=== PATIENT | female | born 1955 | race Caucasian/White ===

== ENCOUNTER 2018-02-07 08:56 | Day surgery (SDC) | payer OTHER ==
[~2018-02-07] VITALS: Ht 160 cm; Wt 77.6 kg
[~2018-02-07 08:56] MED LIST: ACET325 PO; AMLO5 PO; ASCO500 PO; ASPI81CH PO; CALCIUM MAG ZINC PO; CENTRUM SILVER1 EAC2 PO; CHOL10002 PO; FISH OIL 1,2001 EAC3 PO; FOLI1 PO; Ferrous Sulfat325 M2 PO; LISI5 PO; MULVITMIND PO; Melatonin3 M1 PO; NAPROXEN PO; OMEP40CA12 PO; OXYACE5T PO; RXERYTOPTH OP; THIA100 PO; [UNRECOGNIZED DRUG - OTHER] PO
[2018-02-07] MEDS ORDERED: LOSARTAN-HCTZ1 EACH PO (09:55)
[2018-02-07] MEDS ORDERED: ALBU90OI INH (09:56)
[2018-02-07] MEDS ORDERED: ENOX40I SC (13:03)
[2018-02-07] MEDS ORDERED: PROM25 PO (13:03)
[2018-02-07] MEDS ORDERED: ROXICODONE5 MG PO (13:03)
[2018-02-08 05:04] LABS: BASOPHILS ABSOLUTE AUTO 0.03 K/mm3 (0.00-0.23); BASOPHILS PERCENT AUTO 0 % (0-2); EOSINOPHILS ABSOLUTE AUTO 0.56 K/mm3 (0.00-0.68); EOSINOPHILS PERCENT AUTO 6 % (0-6); Hemoglobin 12.3 g/dL (11.5-16.0); IMMATURE GRAN ABSOLUTE AUTO 0.03 K/mm3 (0.00-0.10); IMMATURE GRAN PERCENT AUTO 0 % (0-1); LYMPHOCYTES ABSOLUTE AUTO 0.89 K/mm3 (0.84-5.20); LYMPHOCYTES PERCENT AUTO 9 % (21-46); MONOCYTES ABSOLUTE AUTO 0.92 K/mm3 (0.16-1.47); MONOCYTES PERCENT AUTO 9 % (4-13); Mean Corpuscular HGB 30.6 pg (26.0-34.0); Mean Corpuscular HGB Conc 32.4 g/dL (31.5-36.5); Mean Corpuscular Volume 95 fL (80-100); Mean Platelet Volume 11.1 fL (9.1-12.4); NEUTROPHILS ABSOLUTE AUTO 7.41 K/mm3 (1.96-9.15); NEUTROPHILS PERCENT AUTO 75 % (41-73); Platelet Count 200 K/mm3 (150-400); RDW Coefficient Variation 12.8 % (11.7-14.2); RDW Standard Deviation 44.4 fL (35.1-46.3); Red Blood Cell Count 4.02 M/mm3 (3.80-5.20); White Blood Cell Count 9.84 K/mm3 (4.00-11.30)
[2018-02-08 05:21] LABS: Anion Gap 5 mmol/L (6-16); Blood Urea Nitrogen 8 mg/dL (8-24); Bun/Creatinine Ratio 11.8 (12.0-20.0); CO2, Blood 30 mmol/L (21-32); Calcium, Blood 8.7 mg/dL (8.5-10.1); Chloride, Blood 105 mmol/L (98-108); Creatinine, Blood 0.68 mg/dL (0.40-1.00); Glomerular Filtration Rate >60 (60-); Glucose, Blood 109 mg/dL (70-99); Magnesium, Blood 2.1 mg/dL (1.6-2.4); Potassium, Blood 3.4 mmol/L (3.5-5.5); Sodium, Blood 140 mmol/L (136-145)
[2018-02-08] MEDS ORDERED: Percocet 5-3251 EACH PO (09:48)
== END 2018-02-08 12:01 | disposition home or self-care (01) ==
LOC: SURS 08:56 → PRE IP 08:56 → ORSCMMR 08:56 → SURS 09:48 → EDSTATUS 12:30 → PRE IP 12:30 → ORSCMMR 02-08 12:01 → SURS 02-08 12:01
PROVIDERS: Orthopaedic Surgery
PROC: 0SRC0J9 Replacement of Right Knee Joint with Synthetic Substitute, Cemented, Open Approach (ICD-10-PCS; principal; 2018-02-07 12:30)
DX: M17.11 Unilateral primary osteoarthritis, right knee (principal); I10 Essential (primary) hypertension; Z79.82 Long term (current) use of aspirin; Z79.899 Other long term (current) drug therapy
CPT/HCPCS: 36415; 73560-RT; 80048; 83735; 85025; 86850; 86900; 86901; 88300; 97110; 97116; 97161; C1713; C1776; G8978; G8979; J0171; J0690; J0735; J1650; J1885; J2250; J2405; J2795; J3010; J3370; J7120

== ENCOUNTER 2019-09-18 13:36 | Emergency (ER) | payer OTHER ==
[~2019-09-18] VITALS: Ht 160 cm; Wt 80.7 kg
[~2019-09-18 13:36] MED LIST changes: +ALBU90OI INH; +ENOX40I SC; +LOSARTAN-HCTZ1 EACH PO; +PROM25 PO; +Percocet 5-3251 EACH PO; +ROXICODONE5 MG PO
[2019-09-18 14:29] LABS: Source, Urine Clean Catch
[2019-09-18 14:32] LABS: Appearance, Urine Clear (Clear); Bilirubin, Urine Neg (Neg); Blood, Urine Neg (Neg); Color, Urine Yellow (P-Yellow); Glucose Qualitative, Urine Neg (Neg); Ketones, Urine Neg (Neg); Leukocyte Esterase, Urine Neg (Neg); Nitrite, Urine Neg (Neg); Protein, Urine Neg (Neg); Urobilinogen, Urine NORM (Normal)
[2019-09-18 14:35] LABS: BASOPHILS ABSOLUTE AUTO 0.03 K/mm3 (0.00-0.23); BASOPHILS PERCENT AUTO 0 % (0-2); EOSINOPHILS PERCENT AUTO 3 % (0-6); Hematocrit 45.2 % (33.0-51.0); IMMATURE GRAN ABSOLUTE AUTO 0.04 K/mm3 (0.00-0.10); IMMATURE GRAN PERCENT AUTO 1 % (0-1); LYMPHOCYTES ABSOLUTE AUTO 1.37 K/mm3 (0.84-5.20); LYMPHOCYTES PERCENT AUTO 18 % (21-46); MONOCYTES ABSOLUTE AUTO 0.74 K/mm3 (0.16-1.47); MONOCYTES PERCENT AUTO 10 % (4-13); Mean Corpuscular HGB 31.6 pg (26.0-34.0); Mean Corpuscular HGB Conc 33.2 g/dL (31.5-36.5); Mean Corpuscular Volume 95 fL (80-100); Mean Platelet Volume 11.2 fL (9.1-12.4); NEUTROPHILS PERCENT AUTO 69 % (41-73); Platelet Count 211 K/mm3 (150-400); RDW Coefficient Variation 12.7 % (11.7-14.2); RDW Standard Deviation 44.3 fL (35.1-46.3); Red Blood Cell Count 4.75 M/mm3 (3.80-5.20); White Blood Cell Count 7.68 K/mm3 (4.00-11.30)
[2019-09-18 14:56] LABS: Alanine Aminotransfer (ALT/SGP 256 U/L (12-78); Albumin, Blood 4.4 g/dL (3.4-5.0); Albumin/Globulin Ratio 1.1 (0.8-1.8); Alk Phos 91 U/L (50-136); Anion Gap 10 mmol/L (6-16); Aspartate Aminotrans (AST/SGOT 206 U/L (12-37); Blood Urea Nitrogen 10 mg/dL (8-24); Bun/Creatinine Ratio 11.9 (12.0-20.0); CO2, Blood 24 mmol/L (21-32); Calcium, Blood 9.6 mg/dL (8.5-10.1); Chloride, Blood 100 mmol/L (98-108); Creatinine, Blood 0.84 mg/dL (0.40-1.00); Globulin, Blood 4.1 g/dL (2.2-4.0); Glomerular Filtration Rate >60 (60-); Glucose, Blood 90 mg/dL (70-99); Potassium, Blood 3.9 mmol/L (3.5-5.5); Sodium, Blood 134 mmol/L (136-145); Total Protein, Blood 8.5 g/dL (6.4-8.2)
== END 2019-09-18 15:33 | disposition left against medical advice (07) ==
LOC: ER 13:36
PROVIDERS: Physician Assistant
DX: R10.9 Unspecified abdominal pain (principal); Z53.20 Procedure and treatment not carried out because of patient's decision for unspecified reasons
CPT/HCPCS: 36415; 80053; 81003; 83690; 85025; 93005; 93010; 99283-25

== ENCOUNTER → 2019-12-12 | Outpatient (CLI) | payer OTHER ==
[2019-12-12 15:24] LABS: BASOPHILS ABSOLUTE AUTO 0.05 K/mm3 (0.00-0.23); BASOPHILS PERCENT AUTO 1 % (0-2); EOSINOPHILS ABSOLUTE AUTO 0.25 K/mm3 (0.00-0.68); EOSINOPHILS PERCENT AUTO 2 % (0-6); Hematocrit 45.3 % (33.0-51.0); Hemoglobin 15.4 g/dL (11.5-16.0); IMMATURE GRAN ABSOLUTE AUTO 0.03 K/mm3 (0.00-0.10); IMMATURE GRAN PERCENT AUTO 0 % (0-1); LYMPHOCYTES ABSOLUTE AUTO 3.28 K/mm3 (0.84-5.20); LYMPHOCYTES PERCENT AUTO 32 % (21-46); MONOCYTES ABSOLUTE AUTO 0.75 K/mm3 (0.16-1.47); MONOCYTES PERCENT AUTO 7 % (4-13); Mean Corpuscular HGB 31.8 pg (26.0-34.0); Mean Corpuscular Volume 93 fL (80-100); Mean Platelet Volume 10.6 fL (9.1-12.4); NEUTROPHILS ABSOLUTE AUTO 6.05 K/mm3 (1.96-9.15); NEUTROPHILS PERCENT AUTO 58 % (41-73); Platelet Count 195 K/mm3 (150-400); RDW Coefficient Variation 13.6 % (11.7-14.2); RDW Standard Deviation 46.5 fL (35.1-46.3); Red Blood Cell Count 4.85 M/mm3 (3.80-5.20); White Blood Cell Count 10.41 K/mm3 (4.00-11.30)
[2019-12-12 15:34] LABS: Alanine Aminotransfer (ALT/SGP 97 U/L (12-78); Albumin, Blood 4.4 g/dL (3.4-5.0); Albumin/Globulin Ratio 1.1 (0.8-1.8); Alk Phos 87 U/L (40-126); Anion Gap 16 mmol/L (6-16); Aspartate Aminotrans (AST/SGOT 101 U/L (12-37); Bilirubin, Total 0.5 mg/dL (0.1-1.0); Blood Urea Nitrogen 12 mg/dL (8-24); Bun/Creatinine Ratio 16.9 (12.0-20.0); CO2, Blood 25 mmol/L (21-32); Calcium, Blood 9.3 mg/dL (8.5-10.1); Chloride, Blood 103 mmol/L (98-108); Creatinine, Blood 0.71 mg/dL (0.40-1.00); Globulin, Blood 4.1 g/dL (2.2-4.0); Glomerular Filtration Rate >60 (60-); Glucose, Blood 92 mg/dL (70-99); Potassium, Blood 3.5 mmol/L (3.5-5.5); Sodium, Blood 144 mmol/L (136-145); Total Protein, Blood 8.5 g/dL (6.4-8.2)
== END | disposition home or self-care (01) ==
LOC: LAB EV 15:19 → LAB SHORT 15:19
PROVIDERS: Family Medicine
DX: I10 Essential (primary) hypertension (principal)
CPT/HCPCS: 80053; 85025

== ENCOUNTER 2020-03-17 18:00 | Emergency (ER) | payer OTHER ==
[~2020-03-17] VITALS: Ht 160 cm; Wt 72.6 kg
[~2020-03-17 18:00] MED LIST changes: -ASPI81CH PO; +Aspirin EC81 MG PO
[2020-03-17 19:04] LABS: BASOPHILS ABSOLUTE AUTO 0.06 K/mm3 (0.00-0.23); BASOPHILS PERCENT AUTO 1 % (0-2); EOSINOPHILS ABSOLUTE AUTO 0.21 K/mm3 (0.00-0.68); EOSINOPHILS PERCENT AUTO 4 % (0-6); Hematocrit 44.3 % (33.0-51.0); Hemoglobin 14.4 g/dL (11.5-16.0); IMMATURE GRAN ABSOLUTE AUTO 0.03 K/mm3 (0.00-0.10); IMMATURE GRAN PERCENT AUTO 1 % (0-1); LYMPHOCYTES ABSOLUTE AUTO 2.12 K/mm3 (0.84-5.20); LYMPHOCYTES PERCENT AUTO 37 % (21-46); MONOCYTES ABSOLUTE AUTO 0.71 K/mm3 (0.16-1.47); MONOCYTES PERCENT AUTO 12 % (4-13); Mean Corpuscular HGB 31.9 pg (26.0-34.0); Mean Corpuscular HGB Conc 32.5 g/dL (31.5-36.5); Mean Corpuscular Volume 98 fL (80-100); Mean Platelet Volume 10.4 fL (9.1-12.4); NEUTROPHILS ABSOLUTE AUTO 2.65 K/mm3 (1.96-9.15); NEUTROPHILS PERCENT AUTO 46 % (41-73); Platelet Count 141 K/mm3 (150-400); RDW Coefficient Variation 14.4 % (11.7-14.2); Red Blood Cell Count 4.52 M/mm3 (3.80-5.20); White Blood Cell Count 5.78 K/mm3 (4.00-11.30)
[2020-03-17 19:27] LABS: Alanine Aminotransfer (ALT/SGP 165 U/L (12-78); Albumin, Blood 4.3 g/dL (3.4-5.0); Albumin/Globulin Ratio 0.9 (0.8-1.8); Alk Phos 132 U/L (50-136); Anion Gap 9 mmol/L (6-16); Aspartate Aminotrans (AST/SGOT 311 U/L (12-37); Bilirubin, Total 0.7 mg/dL (0.1-1.0); Blood Urea Nitrogen 10 mg/dL (8-24); Bun/Creatinine Ratio 17.8 (12.0-20.0); CO2, Blood 26 mmol/L (21-32); Calcium, Blood 9.7 mg/dL (8.5-10.1); Chloride, Blood 106 mmol/L (98-108); Creatinine, Blood 0.56 mg/dL (0.40-1.00); Globulin, Blood 4.7 g/dL (2.2-4.0); Glomerular Filtration Rate >60 (60-); Glucose, Blood 104 mg/dL (70-99); Potassium, Blood 3.6 mmol/L (3.5-5.5); Sodium, Blood 141 mmol/L (136-145)
[2020-03-17 20:05] LABS: Source, Urine Clean Catch
[2020-03-17 20:08] LABS: Bilirubin, Urine Neg (Neg); Blood, Urine Neg (Neg); Glucose Qualitative, Urine Neg (Neg); Ketones, Urine Neg (Neg); Leukocyte Esterase, Urine Neg (Neg); Nitrite, Urine Neg (Neg); Protein, Urine Neg (Neg); Urobilinogen, Urine NORM (Normal)
[2020-03-17 20:11] LABS: Appearance, Urine Clear (Clear); Color, Urine Yellow (P-Yellow)
== END 2020-03-17 20:48 | disposition home or self-care (01) ==
LOC: ER 18:00
PROVIDERS: Nurse Practitioner
DX: K70.9 Alcoholic liver disease, unspecified (principal); F10.129 Alcohol abuse with intoxication, unspecified; R53.83 Other fatigue; I10 Essential (primary) hypertension; D64.9 Anemia, unspecified; Y90.8 Blood alcohol level of 240 mg/100 ml or more; Z88.8 Allergy status to other drugs, medicaments and biological substances; Z88.2 Allergy status to sulfonamides; Z79.899 Other long term (current) drug therapy; Z79.82 Long term (current) use of aspirin; Z79.51 Long term (current) use of inhaled steroids; Z87.891 Personal history of nicotine dependence
CPT/HCPCS: 36415; 80053; 81003; 85025; 99283; G0480

== ENCOUNTER 2020-06-29 15:18 | Emergency (ER) | payer OTHER ==
[~2020-06-29] VITALS: Ht 157.5 cm; Wt 79.4 kg
[2020-06-29 16:06] LABS: BASOPHILS ABSOLUTE AUTO 0.05 K/mm3 (0.00-0.23); BASOPHILS PERCENT AUTO 1 % (0-2); EOSINOPHILS ABSOLUTE AUTO 0.22 K/mm3 (0.00-0.68); EOSINOPHILS PERCENT AUTO 4 % (0-6); Hematocrit 38.8 % (33.0-51.0); Hemoglobin 12.8 g/dL (11.5-16.0); IMMATURE GRAN ABSOLUTE AUTO 0.02 K/mm3 (0.00-0.10); IMMATURE GRAN PERCENT AUTO 0 % (0-1); LYMPHOCYTES ABSOLUTE AUTO 2.72 K/mm3 (0.84-5.20); LYMPHOCYTES PERCENT AUTO 43 % (21-46); MONOCYTES ABSOLUTE AUTO 0.75 K/mm3 (0.16-1.47); MONOCYTES PERCENT AUTO 12 % (4-13); Mean Corpuscular HGB 30.9 pg (26.0-34.0); Mean Corpuscular Volume 94 fL (80-100); Mean Platelet Volume 10.6 fL (9.1-12.4); NEUTROPHILS ABSOLUTE AUTO 2.51 K/mm3 (1.96-9.15); NEUTROPHILS PERCENT AUTO 40 % (41-73); Platelet Count 158 K/mm3 (150-400); RDW Coefficient Variation 14.9 % (11.7-14.2); RDW Standard Deviation 51.7 fL (35.1-46.3); Red Blood Cell Count 4.14 M/mm3 (3.80-5.20); White Blood Cell Count 6.27 K/mm3 (4.00-11.30)
[2020-06-29 16:13] LABS: Source, Urine Clean Catch
[2020-06-29 16:17] LABS: Bilirubin, Urine Neg (Neg); Blood, Urine 1+ (Neg); Glucose Qualitative, Urine Neg (Neg); Ketones, Urine Neg (Neg); Leukocyte Esterase, Urine Neg (Neg); Nitrite, Urine Neg (Neg); Protein, Urine Neg (Neg); Urobilinogen, Urine NORM (Normal)
[2020-06-29 16:20] LABS: Appearance, Urine Clear (Clear); Color, Urine Yellow (P-Yellow)
[2020-06-29 16:24] LABS: Bacteria Mod /hpf; Mucus Light (0-Heavy); Red Blood Cells, Urine 0-2 /hpf (0-2); Squamous Epithelial Cells Mod /hpf (Few); White Blood Cells, Urine 0-2 /hpf (0-5)
[2020-06-29 16:26] LABS: Alanine Aminotransfer (ALT/SGP 127 U/L (12-78); Albumin/Globulin Ratio 0.9 (0.8-1.8); Alk Phos 94 U/L (50-136); Anion Gap 10 mmol/L (6-16); Aspartate Aminotrans (AST/SGOT 173 U/L (12-37); Bilirubin, Total 0.7 mg/dL (0.1-1.0); Blood Urea Nitrogen 21 mg/dL (8-24); Bun/Creatinine Ratio 23.9 (12.0-20.0); CO2, Blood 23 mmol/L (21-32); Calcium, Blood 8.9 mg/dL (8.5-10.1); Chloride, Blood 104 mmol/L (98-108); Creatinine, Blood 0.88 mg/dL (0.40-1.00); Globulin, Blood 4.3 g/dL (2.2-4.0); Glomerular Filtration Rate >60 (60-); Glucose, Blood 175 mg/dL (70-99); Potassium, Blood 3.7 mmol/L (3.5-5.5); Sodium, Blood 137 mmol/L (136-145); Total Protein, Blood 8.3 g/dL (6.4-8.2)
== END 2020-06-29 16:55 | disposition left against medical advice (07) ==
LOC: ER 15:18
PROVIDERS: Physician Assistant
DX: Z53.21 Procedure and treatment not carried out due to patient leaving prior to being seen by health care provider (principal)
CPT/HCPCS: 36415; 80053; 81001; 85025; 87086; 93005; 93010; 99283-25

== ENCOUNTER 2020-11-03 15:13 | Emergency (ER) | payer OTHER ==
[~2020-11-03] VITALS: Ht 160 cm; Wt 77.1 kg
[~2020-11-03 15:13] MED LIST changes: +ALPR.25 PO; +DICLEGIS DR 101 EAC1 PO; +MELA3; +NASACORT10.8 ML; +OMEP20ER PO; +PSEU120ER PO
[2020-11-03 16:05] LABS: BASOPHILS ABSOLUTE AUTO 0.06 K/mm3 (0.00-0.23); BASOPHILS PERCENT AUTO 1 % (0-2); EOSINOPHILS ABSOLUTE AUTO 0.27 K/mm3 (0.00-0.68); EOSINOPHILS PERCENT AUTO 5 % (0-6); Hematocrit 39.1 % (33.0-51.0); Hemoglobin 12.7 g/dL (11.5-16.0); IMMATURE GRAN ABSOLUTE AUTO 0.02 K/mm3 (0.00-0.10); IMMATURE GRAN PERCENT AUTO 0 % (0-1); LYMPHOCYTES ABSOLUTE AUTO 2.01 K/mm3 (0.84-5.20); LYMPHOCYTES PERCENT AUTO 34 % (21-46); MONOCYTES ABSOLUTE AUTO 0.54 K/mm3 (0.16-1.47); MONOCYTES PERCENT AUTO 9 % (4-13); Mean Corpuscular HGB 31.1 pg (26.0-34.0); Mean Corpuscular HGB Conc 32.5 g/dL (31.5-36.5); Mean Corpuscular Volume 96 fL (80-100); Mean Platelet Volume 10.9 fL (9.1-12.4); NEUTROPHILS ABSOLUTE AUTO 2.99 K/mm3 (1.96-9.15); NEUTROPHILS PERCENT AUTO 51 % (41-73); Platelet Count 122 K/mm3 (150-400); RDW Coefficient Variation 14.7 % (11.7-14.2); RDW Standard Deviation 52.5 fL (35.1-46.3); Red Blood Cell Count 4.09 M/mm3 (3.80-5.20); White Blood Cell Count 5.89 K/mm3 (4.00-11.30)
[2020-11-03 16:29] LABS: Alanine Aminotransfer (ALT/SGP 119 U/L (12-78); Albumin, Blood 3.9 g/dL (3.4-5.0); Albumin/Globulin Ratio 0.9 (0.8-1.8); Alk Phos 144 U/L (50-136); Anion Gap 9 mmol/L (6-16); Aspartate Aminotrans (AST/SGOT 191 U/L (12-37); Bilirubin, Total 0.7 mg/dL (0.1-1.0); Blood Urea Nitrogen 10 mg/dL (8-24); Bun/Creatinine Ratio 12.4 (12.0-20.0); CO2, Blood 28 mmol/L (21-32); Calcium, Blood 9.1 mg/dL (8.5-10.1); Chloride, Blood 106 mmol/L (98-108); Creatinine, Blood 0.81 mg/dL (0.40-1.00); Globulin, Blood 4.5 g/dL (2.2-4.0); Glomerular Filtration Rate >60 (60-); Glucose, Blood 101 mg/dL (70-99); Potassium, Blood 3.7 mmol/L (3.5-5.5); Sodium, Blood 143 mmol/L (136-145); Total Protein, Blood 8.4 g/dL (6.4-8.2)
[2020-11-03] MEDS ORDERED: LOSA25 PO (18:34)
== END 2020-11-03 19:06 | disposition home or self-care (01) ==
LOC: ER 15:13
PROVIDERS: Physician Assistant
DX: K70.10 Alcoholic hepatitis without ascites (principal); F10.20 Alcohol dependence, uncomplicated; I10 Essential (primary) hypertension; Z87.891 Personal history of nicotine dependence; Z79.899 Other long term (current) drug therapy; Z79.82 Long term (current) use of aspirin
CPT/HCPCS: 36415; 80053; 85025; 93005; 93010; 99284-25

== ENCOUNTER 2020-12-15 07:12 | Inpatient (IN) | payer OTHER ==
[~2020-12-15] VITALS: Ht 165.1 cm; Wt 77.2 kg
[~2020-12-15 07:12] MED LIST changes: -ALPR.25 PO
[2020-12-15 07:40] LABS: Source, Urine Catheter
[2020-12-15 07:43] LABS: Appearance, Urine Clear (Clear); Blood, Urine 1+ (Neg); Color, Urine Brown (P-Yellow); Glucose Qualitative, Urine Neg (Neg); Ketones, Urine 1+ (Neg); Leukocyte Esterase, Urine 2+ (Neg); Nitrite, Urine Pos (Neg); Protein, Urine 2+ (Neg); Urobilinogen, Urine 2+ (Normal)
[2020-12-15 07:56] LABS: Bilirubin, Urine 3+ (Neg)
[2020-12-15 07:59] LABS: Red Blood Cells, Urine 0-2 /hpf (0-2)
[2020-12-15 08:00] LABS: Bacteria Many /hpf; Squamous Epithelial Cells Few /hpf (Few)
[2020-12-15 08:01] LABS: Amorphous Mod (0-Heavy); Transitional Epithelial Cells Few /hpf (0-Rare)
[2020-12-15 08:02] LABS: U Amphetamine Screen Not Detected; U Barbituate Screen Not Detected; U Benzodiazapine Screen DETECTED; U Buprenorphine Screen Not Detected; U Cannabinoids Screen Not Detected; U Cocaine Screen Not Detected; U Methadone Screen Not Detected; U Methamphetamine Screen Not Detected; U Opiates Screen Not Detected; U Oxycodone Screen Not Detected; U Phencyclidine Screen Not Detected; U Propoxyphene Screen Not Detected
[2020-12-15 08:03] LABS: BASOPHILS ABSOLUTE AUTO 0.13 K/mm3 (0.00-0.23); BASOPHILS PERCENT AUTO 0 % (0-2); EOSINOPHILS ABSOLUTE AUTO 0.02 K/mm3 (0.00-0.68); EOSINOPHILS PERCENT AUTO 0 % (0-6); Hematocrit 48.4 % (33.0-51.0); Hemoglobin 16.3 g/dL (11.5-16.0); IMMATURE GRAN PERCENT AUTO 1 % (0-1); LYMPHOCYTES ABSOLUTE AUTO 1.31 K/mm3 (0.84-5.20); LYMPHOCYTES PERCENT AUTO 5 % (21-46); MONOCYTES PERCENT AUTO 4 % (4-13); Mean Corpuscular HGB 31.7 pg (26.0-34.0); Mean Corpuscular HGB Conc 33.7 g/dL (31.5-36.5); Mean Corpuscular Volume 94 fL (80-100); Mean Platelet Volume 11.9 fL (9.1-12.4); NEUTROPHILS ABSOLUTE AUTO 26.28 K/mm3 (1.96-9.15); NEUTROPHILS PERCENT AUTO 90 % (41-73); Platelet Count 470 K/mm3 (150-400); RDW Coefficient Variation 14.9 % (11.7-14.2); RDW Standard Deviation 51.9 fL (35.1-46.3); Red Blood Cell Count 5.15 M/mm3 (3.80-5.20); White Blood Cell Count 29.24 K/mm3 (4.00-11.30)
[2020-12-15 08:25] LABS: Alanine Aminotransfer (ALT/SGP 103 U/L (12-78); Albumin, Blood 4.1 g/dL (3.4-5.0); Albumin/Globulin Ratio 0.6 (0.8-1.8); Alk Phos 216 U/L (50-136); Anion Gap 18 mmol/L (6-16); Aspartate Aminotrans (AST/SGOT 73 U/L (12-37); Bilirubin, Total 2.9 mg/dL (0.1-1.0); Blood Urea Nitrogen 74 mg/dL (8-24); CO2, Blood 24 mmol/L (21-32); Calcium, Blood 9.4 mg/dL (8.5-10.1); Chloride, Blood 83 mmol/L (98-108); Creatinine, Blood 6.17 mg/dL (0.40-1.00); Ethanol (Alcohol), Blood, Med <3 mg/dL; Globulin, Blood 6.4 g/dL (2.2-4.0); Glomerular Filtration Rate 7 (60-); Glucose, Blood 125 mg/dL (70-99); Magnesium, Blood 2.4 mg/dL (1.6-2.4); Potassium, Blood 4.1 mmol/L (3.5-5.5); Sodium, Blood 125 mmol/L (136-145); Total Protein, Blood 10.5 g/dL (6.4-8.2)
[2020-12-15 08:41] LABS: Influenza A, PCR Negative (NEGATIVE); Influenza B, PCR Negative (NEGATIVE); Resp Syncytial Virus, PCR Negative (NEGATIVE); SARS-Cov-2 (COVID-19) PCR, MMC Negative (NEGATIVE)
[2020-12-15 10:11] LABS: International Normalized Ratio 1.12; Prothrombin Time Results 11.9 Sec (9.7-11.5)
[2020-12-15] MEDS ORDERED: ALPR.25 PO (12:27)
[2020-12-15] MEDS ORDERED: LOSA25 PO (12:28)
--- NOTE | 2020-12-15 12:48 | NUR ---
PT IS UNRESPONSIVE BESIDES PHYSICAL STIMULI. PT WITH SOME PURPOSEFUL MOVEMENT OF WITH REACHING UP TO FACE OR SCRATCHING HER HEAD BUT DOESN'T NOT RESPOND TO VERBAL COMMANDS OR VERBAL REQUESTS. PT IS TENDER TO LIGHT TOUCH TO HER ABD. SEE ER FOR FURTHER INFORMATION REGARDING PT HX. PT BIOX ON ROOM AIR WHEN SHE ENTERED DS IS APPROX 92-93% PT FALLS ASLEEP WITH SNORING RESPIRATIONS AND BIOX DROPS INTO 80'S DESPITE ENCOURAGING DEEP BREATHING AND SUPPLIMENTAL O2 PLACEMENT. PT PLACED ON NON REBREATHERS ON 10L. BIOX UP TO 98% AFTER AMISH THRUST ASSISTANC BY PARI LOVE FOR A FEW SECONDS. PT GROANED WITH THIS PROCEDURE AND BIOX UP REMAINED ABOUT 94-95% AFTER THAT.
--- NOTE | 2020-12-15 15:30 | NUR ---
ADMIT PT ARRIVED TO ICU 16 VIA BED AT 1430 FROM THE OR. PT ARRIVES INTUBATED, WITH ANESTHESIA AT BEDSIDE BAGGING PT. PT CONNECTED TO ICU VENT BY RT. VENT SETTINGS AC 16, TV 360, PEEP 5, FIO2 30%. PT WITHOUT COUGH OR GAG WITH DEEP SUCTION. PT NOT RESPONSIVE TO NOXIOUS STIMULI UPON ARRIVAL. VITAL SIGNS STABLE INITIALLY. PT WITH BREIF PERIOD OF HR 200'S. DR PERAZA AT BEDSIDE, PT MED WITH IV LOPRESSOR WITH GOOD EFFECT ON HR. PT NOW WITH HR 100'S, BP STABLE. 1L NS BOLUS INFUSING AND PROPOFOL STARTED AT 20 MCG/KG/MIN. PT WITH RUDOLPH IN PLACE WITH DARK YELLOW OUTPUT NOTED. MIDLINE ABD INCISION WITH STERI STRIPS AND GAUZE IN PLACE. WILL CONTINUE TO MONITOR.
[2020-12-15 15:42] LABS: Albumin, Blood 2.8 g/dL (3.4-5.0); Bun/Creatinine Ratio 13.4 (12.0-20.0); Calcium, Blood 7.9 mg/dL (8.5-10.1); Creatinine, Blood 4.62 mg/dL (0.40-1.00); Potassium, Blood 3.8 mmol/L (3.5-5.5)
[2020-12-15 15:43] LABS: Albumin/Globulin Ratio 0.6 (0.8-1.8); Globulin, Blood 4.5 g/dL (2.2-4.0); Total Protein, Blood 7.3 g/dL (6.4-8.2)
[2020-12-15 16:43] LABS: Source, Urine Catheter
[2020-12-15 16:45] LABS: Appearance, Urine Clear (Clear); Blood, Urine 3+ (Neg); Color, Urine Yellow (P-Yellow); Glucose Qualitative, Urine Neg (Neg); Ketones, Urine 1+ (Neg); Leukocyte Esterase, Urine 1+ (Neg); Nitrite, Urine Neg (Neg); Protein, Urine 2+ (Neg); Specific Gravity, Urine 1.015 (1.003-1.022); Urobilinogen, Urine 1+ (Normal)
[2020-12-15 16:52] LABS: Bilirubin, Urine 2+ (Neg)
[2020-12-15 16:53] LABS: White Blood Cells, Urine 0-2 /hpf (0-5)
[2020-12-15 16:54] LABS: Amorphous Light (0-Heavy); Bacteria Few /hpf; Mucus Light (0-Heavy); Squamous Epithelial Cells Few /hpf (Few)
[2020-12-15 16:55] LABS: Granular Casts Rare /lpf (0)
--- NOTE | 2020-12-15 17:41 | NUR ---
SHIFT SUMMARY NO ACUTE CHANGES SINCE ADMIT THIS AFTERNOON. PT REMAINS INTUBATED AND SEDATED. VENT SETTINGS UNCHANGES. PROPOFOL INFUSING AT 10 MCG/KG/MIN, AND D5W AT 500 ML/HR. PT REMAINS UNRESPONSIVE TO NOXIOUS STIMULI. SBW RESTRAINTS REMAIN IN PLACE. NGT REMAINS IN PLACE TO LIS. VITAL SIGNS STABLE. RUDOLPH IN PLACE WITH GOOD URINE OUTPUT NOTED. MIDLINE ABD DRESSING REMAINS C/D/I. PT SPOUSE UPDATED AT BEDSIDE THIS AFTERNOON. WILL CONTINUE TO MONITOR AND REPORT OFF TO ONCOMING RN.
--- NOTE | 2020-12-15 19:21 | NUR ---
ASSUMED CARE OF PT AT 1900. REPORT RECEIVED AT BEDSIDE. PT PRESENTS IN BED. VENTED - AC 16, Tv 360, FIO2 30%, PEEP 5. PT ON PROPOFOL AT 10 MCG'S KG/MIN. SAS 3. BP NOTED TO BE SUSEPTABLE TO POSITIONING. WILL DO BP'S ON NON ELEVATED SIDE. NO S/S DISTRESS OR PAIN. NGT TO LIWS. RETURN OF BROWN/KIM COLORED LIQUID. MIDLINE DRESSING CDI. BOWEL TONES NORMAL IN BOTH RIGHT QUADRANTS, AND HYPOACTIVE IN BOTH LEFT. PERRLA. LUNGS CLEAR BI LAT. HEART SOUNDS S1, S2. WILL REVIEW CHART AND PLAN OF CARE FOR THIS PT.
--- NOTE | 2020-12-15 20:22 | NUR ---
AFTER DOING ORAL CARE ON PT SHE BEGINS TO BECOME AGITATED/ANXIOUS. INCREASED PROPOFOL FROM 10 TO 20 AND SUBSEQUENTLY TO 30 MCG/KG/MIN. NOTED PT'S BLOOD PRESSURES DECREASE TO SBP 77. IS MAINTAINING MAP >60. HAVE DECREASED BACK TO 20 MCG'S/KG/MIN. HAVE SPOKEN TO DR PERAZA IN THE UNIT, AND BY TELEPHONE. ORDERS RECEIVED. HE STATES HE WILL WANT TO DO SBT IN AM WHEN HE IS HERE AND TO HOLD OFF ON SBT THIS SHIFT.
--- NOTE | 2020-12-15 21:06 | NUR ---
PT'S BLOOD PRESSURES REMAIN LOW. DID NEED TO START LEVOPHED DRIP AT 5 MCG/S. WILL TITRATE TO MAP 65. WILL MONITOR CLOSELY.
[2020-12-15 21:21] LABS: Bun/Creatinine Ratio 16.6 (12.0-20.0); Calcium, Blood 7.3 mg/dL (8.5-10.1); Creatinine, Blood 3.13 mg/dL (0.40-1.00); Potassium, Blood 3.4 mmol/L (3.5-5.5)
--- NOTE | 2020-12-15 21:37 | NUR ---
HAVE INCREASED LEVOPHED TO 8 MCG'S/MIN.
--- NOTE | 2020-12-15 21:56 | NUR ---
CALL MADE TO DR PERAZA CONCERNING RETURN OF LABS AND THAT PATIENT WAS REQUIRING 8MCG/MIN LEVOPHED. ORDERS RECEIVED.
--- NOTE | 2020-12-16 00:30 | NUR ---
PT'S BLOOD PRESSURES MAINTAINING WITH MAP > 60. CONTINUES TO RECEIVE [address] PERAZA. TITRATING LEVOPHED DOWN ABLE. PT HAS ONLY SMALL AMOUNT OF CLEAR SECRETIONS RETURNED FROM ETT. WILL CONTINUE TO MONITOR.
--- NOTE | 2020-12-16 03:00 | NUR ---
PT HAS BEEN ABLE TO BE DECREASED ON LEVOPHED TO 5 MCG'S/MIN. PROPOFOL AT 15 MCG'S/KG/MIN. HAVE SUCTIONED PT AGAIN WITH SAME CLEAR THIN SECRETIONS.
[2020-12-16 04:02] LABS: BASOPHILS ABSOLUTE AUTO 0.07 K/mm3 (0.00-0.23); BASOPHILS PERCENT AUTO 0 % (0-2); EOSINOPHILS ABSOLUTE AUTO 0.06 K/mm3 (0.00-0.68); EOSINOPHILS PERCENT AUTO 0 % (0-6); Hematocrit 36.1 % (33.0-51.0); IMMATURE GRAN ABSOLUTE AUTO 0.12 K/mm3 (0.00-0.10); IMMATURE GRAN PERCENT AUTO 1 % (0-1); LYMPHOCYTES ABSOLUTE AUTO 1.45 K/mm3 (0.84-5.20); LYMPHOCYTES PERCENT AUTO 7 % (21-46); MONOCYTES ABSOLUTE AUTO 1.42 K/mm3 (0.16-1.47); MONOCYTES PERCENT AUTO 7 % (4-13); Mean Corpuscular HGB 31.6 pg (26.0-34.0); Mean Corpuscular HGB Conc 33.2 g/dL (31.5-36.5); Mean Corpuscular Volume 95 fL (80-100); NEUTROPHILS ABSOLUTE AUTO 17.68 K/mm3 (1.96-9.15); NEUTROPHILS PERCENT AUTO 85 % (41-73); Platelet Count 348 K/mm3 (150-400); RDW Coefficient Variation 14.6 % (11.7-14.2); RDW Standard Deviation 51.4 fL (35.1-46.3)
[2020-12-16 04:21] LABS: Albumin, Blood 2.4 g/dL (3.4-5.0); Albumin/Globulin Ratio 0.6 (0.8-1.8); Bilirubin, Total 1.9 mg/dL (0.1-1.0); Bun/Creatinine Ratio 19.6 (12.0-20.0); Calcium, Blood 7.5 mg/dL (8.5-10.1); Creatinine, Blood 2.04 mg/dL (0.40-1.00); Globulin, Blood 4.1 g/dL (2.2-4.0); Magnesium, Blood 1.7 mg/dL (1.6-2.4); Total Protein, Blood 6.5 g/dL (6.4-8.2)
--- NOTE | 2020-12-16 06:23 | NUR ---
PT HAS TOLERATED Q 2 HOUR TURNS. AWAKENS WITH TACTILE STIMULI. HAVE MAINTAINED WELL ON LOW SEDATION WITH PROPOFOL AT 15 MCG'S/KG/MIN. LEVOPHED CONTINUES AT 5 MCG'S. BLOOD PRESSURE HAS MAINTAINED MAP > 60. PT HAS HAD Q.S. URINE OUTPUT THIS NIGHT. WILL CONTINUE TO MONITOR, AND WILL REPORT OFF TO ONCOMING RN.
--- NOTE | 2020-12-16 08:54 | NUR ---
ASSUMED CARE OF PT, REPORT RCV'D FROM IVAN JACOBSEN. PT INTUBATED AND SEDATED. VENT SETTINGS AC 16/360/5/30%, SEDATED WITH PROPOFOL 15 MCG/KG/MIN. PT EASILY AROUSABLE TO VERBAL STIMULATION, FAILS TO FOLLOW COMMANDS AT THIS TIME. LEVOPHED PLACED ON STANDBY AT START OF SHIFT, PT ABLE TO MAINTAIN MAP>65. PT HAS MIDLINE SURGICAL DRESSING, C/D/I/. VSS AT THIS TIME. SEE FULL SHIFT ASSESSMENT.
--- NOTE | 2020-12-16 10:45 | NUR ---
PT PLACED ON SPONTANEOUS AT 0903, PT ABLE TO MOVE ALL EXTREMETIES BOLIVAR. PT OPENS EYES SPONTANEOUSLY, COUGHS ON DEMAND. PT EXTUBATED TAKEN OUT OF RESTRAINTS AND EXTUBATED AT 1000. PT'S SATS IN MID 90'S ON RA. NGT REMAINS TO LIS. NEURO CHECKS Q2. CALLED PT'S AND UPDATED WITH PT'S STATUS.
[2020-12-16 10:57] LABS: Albumin, Blood 2.3 g/dL (3.4-5.0); Albumin/Globulin Ratio 0.5 (0.8-1.8); Bilirubin, Total 2.1 mg/dL (0.1-1.0); Bun/Creatinine Ratio 21.4 (12.0-20.0); Calcium, Blood 7.9 mg/dL (8.5-10.1); Creatinine, Blood 1.45 mg/dL (0.40-1.00); Globulin, Blood 4.2 g/dL (2.2-4.0); Potassium, Blood 3.8 mmol/L (3.5-5.5); Total Protein, Blood 6.5 g/dL (6.4-8.2)
--- NOTE | 2020-12-16 12:22 | NUR ---
ADMIT: 12/15/20 DISCHARGE: DX: acute metabolic encephalopathy and incarcerated hernia CC: SCOTT CALL: RESIDENCE: home with spouse CAREGIVER: Nadir Palma, Spouse / Partner, Miguel Angel Mckinnon, Family Member, DX: alcohol dependence, HTN, Anemia, DME: None CCM: none HOME HEALTH: none SUMMARY: 12/16/20- per chart review with Dr. Amaya, pt was extubated this morning. There is some concern about her cognitive function but this will be assessed as time progresses. Family has been notified of status. No est ETA for d/c at this time. -pollo
--- NOTE | 2020-12-16 14:59 | NUR ---
PT'S AT BEDSIDE. DISCUSSED PT'S NEUROLOGICAL STATUS, PT CONTINUES TO MOAN WITH NO VERBALIZATION OF WORDS. PT WILL LOOK TOWARD SOUND AND OCCASIONALLY WILL SQUEEZE LEFT HAND ON COMMAND. NO COMMANDS ON RIGHT SIDE. PT DOES MOVE ALL EXTREMETIES WEAKLY. PER PT'S , PT'S CURRENT NEURO STATUS ALIGNS WITH PT'S BEHAVIOR PRIOR TO ADMISSION. PT'S STATES PT BECAME "NONVERBAL" APPROXIMATELY 2-3 DAYS AGO. CURRENTLY DOING Q2H NEURO CHECKS PER ORDER.
[2020-12-16 16:39] LABS: Bun/Creatinine Ratio 20.7 (12.0-20.0); Calcium, Blood 8.1 mg/dL (8.5-10.1); Creatinine, Blood 1.21 mg/dL (0.40-1.00); Potassium, Blood 3.9 mmol/L (3.5-5.5); Thyroid Stimulating Hormone 2.01 uIU/mL (0.360-4.800)
--- NOTE | 2020-12-16 16:54 | NUR ---
PT BECOMING MORE VOCAL AND ABLE TO ANSWER QUESTIONS APPROPRIATELY. WHEN ASKED WHERE HER PAIN IS PATIENT RESPONDED "NO PAIN", ASKED PATIENT IS SHE WAS SCARED AND PT REPLIED "A LITTLE", REORIENTED AND REASSURED PT. PT BECAME TEARFUL BUT WAS CONSOLABLE. PT TO BE TRANSFERRED TO SURGICAL FLOOR ROOM 209. WILL CALL AND UPDATE PT'S .
--- NOTE | 2020-12-16 17:24 | NUR ---
PT ARRIVED TO THE ROOM AT APPROXIMATELY 1705. PT RESPONDS TO VERBAL STIMULI AND CAN TELL STAFF HER NAME AND ; SHE WILL OCCASIONALLY ANSWER YES/NO QUESTIONS. HER EXTREMITIES ARE WEAK BUT SHE CAN MOVE ALL EXTREMITIES. PT REMINDED SHE HAS A RUDOLPH CATHETER IN PLACE. NG TUBE CONNECTED TO LOW INTERMITTENT SUCTION. WILL CONTINUE TO MONITOR.
--- NOTE | 2020-12-16 18:16 | NUR ---
SHIFT SUMMARY NO SIGNIFICANT CHANGES TO REPORT SINCE PT ARRIVED TO THE UNIT FROM ICU. WILL CONTIUE TO MONITOR.
--- NOTE | 2020-12-17 04:48 | NUR ---
SHIFT SUMMARY PT REPSONDS TO VERBAL STIMULA. SHE HAS LIMITED VERBAL USE, WHEN COMMUNICATING. INTERMITTENTLY USE PHRASE OR A SHORT SENTENCE. SHE ALERT AND ORIENTED IN PLACE. SHE IS AWARE THAT SHE IS IN THE HOSPITAL. PT HAS INDEPENDTLY MOVED/SIT ON THE EDGE OF THE BED LAST NIGHT. SHE HAD A BM, USED THE BSC AND 2 PERSON MINIMAL ASSIST W/ WALKER. SHE HAS BEEN GROANING MOST NIGHTS. SHE DENIES PAIN BUT APPEARED UNCOMFORTABLE. SHE HAD HALF BED BATH WITH WARM WASH CLOTH AND SOME MOUTH SWAB W/LIP BALM. SHE APPEARED TO HAVE SOME RELIEF. RUDOLPH CATH STILL INTACT, PATENT AND SECURE. A POWERGLIDE WAS PLACED ON TRAVIS LAST NIGHT. CALL LIGHT W/IN REACH.
--- NOTE | 2020-12-17 11:30 | NUR ---
DR OQUENDO HERE TO SEE PATIENT, NG CLAMPED. EDUCATION TO PT THAT IF SHE HAS ANY NAUSEA TO NOTIFY STAFF AND WILL PLACE NG TO SUCTION
--- NOTE | 2020-12-17 17:37 | NUR ---
NG CLAMPED SINCE 1129, PT TAKING ICE CHIPS AND POPSICLES WITHOUT NAUSEA. PT DENIES ABD PAIN , SITTING UP IN CHAIR SINCE 829 AND AMBULATING IN ROOM AND NATH WITH STANDBY ASSIST. PT MOANS AND CRIES OUT, WHEN ASKED WHY SHE IS DOING THIS STATES SHE DOESNT KNOW WHY AND DENIES BEING IN PAIN. ABD DRESSING REMOVED BY DR OQUENDO AND INCISION WITHOUT REDNESS OR DRAINAGE. PT ORIENTED AND CONVERSING APPROPRIATELY. VOIDING JOHN URINE
--- NOTE | 2020-12-17 17:59 | NUR ---
PT FOUND SITTING ON FLOOR. PT STATES DROPPED HER CHAPSTICK AND GOT OUT OF BED TO FIND IT. COULDNT FIND CHAPSTICK SO SAT ON FLOOR TO GET IT. PT DENIES FALLING , CALL LIGHT ATTACHED TO SIDE RAIL OF BED, BED ALARM SOUNDING, CALL LIGHT IS HOOKED TO BED RAIL. PT SITTING ON FLOOR TALKING ON PHONE TO HER . PT MIN TWO PERSON ASSIST OFF OF FLOOR AND RETURNED TO BED. RE EDUCATED ON NEED TO CALL FOR ASSIST OOB.CALL LIGHT IN REACH. BED ALARM IN PLACE., PT REQUESTS PHONE SO SHE CAN CALL HER BACK
--- NOTE | 2020-12-18 04:14 | NUR ---
SHIFT SUMMARY POD3 INCARCERATED VENTRAL HERNIA REPAIR, A/O BUT FORGETFUL, REDICRECTS EASILY, TOLERATING SIPS/CHIPS/POPCICLES PER REPORT, DENIES N/V, VOIDING, NO BM THIS SHIFT, DENIES PAIN, NO ACUTE EVENTS THIS SHIFT. CALL LIGHT IN REACH, WILL CONTINUE TO MONITOR AND REPORT TO ONCOMING DAY RN.
[2020-12-18 04:28] LABS: BASOPHILS ABSOLUTE AUTO 0.04 K/mm3 (0.00-0.23); BASOPHILS PERCENT AUTO 1 % (0-2); EOSINOPHILS ABSOLUTE AUTO 0.16 K/mm3 (0.00-0.68); EOSINOPHILS PERCENT AUTO 2 % (0-6); Hematocrit 32.1 % (33.0-51.0); Hemoglobin 10.3 g/dL (11.5-16.0); IMMATURE GRAN ABSOLUTE AUTO 0.04 K/mm3 (0.00-0.10); IMMATURE GRAN PERCENT AUTO 1 % (0-1); LYMPHOCYTES ABSOLUTE AUTO 1.53 K/mm3 (0.84-5.20); LYMPHOCYTES PERCENT AUTO 22 % (21-46); MONOCYTES ABSOLUTE AUTO 0.64 K/mm3 (0.16-1.47); MONOCYTES PERCENT AUTO 9 % (4-13); Mean Corpuscular HGB 31.8 pg (26.0-34.0); Mean Corpuscular HGB Conc 32.1 g/dL (31.5-36.5); Mean Corpuscular Volume 99 fL (80-100); NEUTROPHILS ABSOLUTE AUTO 4.62 K/mm3 (1.96-9.15); NEUTROPHILS PERCENT AUTO 66 % (41-73); Platelet Count 188 K/mm3 (150-400); RDW Coefficient Variation 14.3 % (11.7-14.2); RDW Standard Deviation 52.8 fL (35.1-46.3); Red Blood Cell Count 3.24 M/mm3 (3.80-5.20); White Blood Cell Count 7.03 K/mm3 (4.00-11.30)
[2020-12-18 04:52] LABS: Anion Gap 6 mmol/L (6-16); Blood Urea Nitrogen 13 mg/dL (8-24); Bun/Creatinine Ratio 16.6 (12.0-20.0); CO2, Blood 27 mmol/L (21-32); Calcium, Blood 8.2 mg/dL (8.5-10.1); Chloride, Blood 110 mmol/L (98-108); Creatinine, Blood 0.78 mg/dL (0.40-1.00); Glomerular Filtration Rate >60 (60-); Glucose, Blood 88 mg/dL (70-99); Potassium, Blood 3.6 mmol/L (3.5-5.5); Sodium, Blood 143 mmol/L (136-145)
--- NOTE | 2020-12-18 09:28 | NUR ---
DR OQUENDO HERE AND REMOVED NG
--- NOTE | 2020-12-18 17:24 | NUR ---
SUMMARY PT EATING REGULAR DIET FOR DINNER, DENIES NAUSEA. AMBULATING IN HALLWAY INDEPENDENTLY AND STEADY ON FEET. PT ALERT AND ORIENTED, HAS DENIED NEED FOR PAIN MEDS. ONE LOOSE BROWN STOOL. PT IS ANTICIPATING DISCHARGE ON 12/18/20
--- NOTE | 2020-12-19 04:23 | NUR ---
SHIFT SUMMARY: PT POD#4 FOR HERNIA REPAIR. VINICIUS REGULAR DIET. DENIES N/V. REPORTS PASSING FLATUS AND HAVING A BM YESTERDAY. DENIES PAIN THROUGHOUT SHIFT, DENIES NEED FOR PAIN MEDICATION. INDEPENDENT IN ROOM. PT RESTING MOST OF SHIFT. PLAN FOR DISCHARGE TODAY.
[2020-12-19 05:38] LABS: BASOPHILS ABSOLUTE AUTO 0.05 K/mm3 (0.00-0.23); BASOPHILS PERCENT AUTO 1 % (0-2); EOSINOPHILS ABSOLUTE AUTO 0.22 K/mm3 (0.00-0.68); EOSINOPHILS PERCENT AUTO 2 % (0-6); Hematocrit 33.9 % (33.0-51.0); Hemoglobin 10.9 g/dL (11.5-16.0); IMMATURE GRAN ABSOLUTE AUTO 0.05 K/mm3 (0.00-0.10); IMMATURE GRAN PERCENT AUTO 1 % (0-1); LYMPHOCYTES ABSOLUTE AUTO 1.14 K/mm3 (0.84-5.20); LYMPHOCYTES PERCENT AUTO 12 % (21-46); MONOCYTES ABSOLUTE AUTO 0.83 K/mm3 (0.16-1.47); MONOCYTES PERCENT AUTO 9 % (4-13); Mean Corpuscular HGB 31.4 pg (26.0-34.0); Mean Corpuscular HGB Conc 32.2 g/dL (31.5-36.5); Mean Corpuscular Volume 98 fL (80-100); NEUTROPHILS ABSOLUTE AUTO 7.52 K/mm3 (1.96-9.15); NEUTROPHILS PERCENT AUTO 77 % (41-73); Platelet Count 232 K/mm3 (150-400); RDW Coefficient Variation 13.6 % (11.7-14.2); RDW Standard Deviation 49.2 fL (35.1-46.3); Red Blood Cell Count 3.47 M/mm3 (3.80-5.20); White Blood Cell Count 9.81 K/mm3 (4.00-11.30)
[2020-12-19 06:13] LABS: Anion Gap 7 mmol/L (6-16); Blood Urea Nitrogen 10 mg/dL (8-24); Bun/Creatinine Ratio 13.3 (12.0-20.0); CO2, Blood 24 mmol/L (21-32); Calcium, Blood 8.5 mg/dL (8.5-10.1); Chloride, Blood 108 mmol/L (98-108); Creatinine, Blood 0.75 mg/dL (0.40-1.00); Glomerular Filtration Rate >60 (60-); Glucose, Blood 93 mg/dL (70-99); Potassium, Blood 4.3 mmol/L (3.5-5.5); Sodium, Blood 139 mmol/L (136-145)
[2020-12-19] MEDS ORDERED: MELATONIN5 M1 PO (10:50)
[2020-12-19] MEDS ORDERED: OMEP20ER PO (10:51)
[2020-12-19] MEDS ORDERED: IBUP400 PO (10:55)
[2020-12-19] MEDS ORDERED: HYDR1TAB94 PO (11:04)
--- NOTE | 2020-12-19 12:53 | NUR ---
DISCHARGE. PT DISCHARGED VIA WHEELCHAIR AT APPROX 1230. PT LEFT WITH . DISCHARGE INSTRUCTIONS GONE OVER WITH BOTH. WRITTEN SCRIPT SENT WITH PT AND MEDICATIONS FAXED TO PHARMACY. IV REMOVED. ALL BELONGINGS SENT WITH PATIENT. DECLINED FURTHER QUESTIONS.
[2021-03-17] MEDS ORDERED: MULTI-VITAMIN1 EAC2 PO (18:52)
== END 2020-12-19 12:38 | disposition home or self-care (01) | DRG 353 ==
LOC: ER 07:12 → ICUW 10:45 → SURS 12-16 17:08
PROVIDERS: Emergency Medicine; Internal Medicine Critical Care Medicine; Surgery; ADMIT Family Medicine
PROC: 0WQF0ZZ Repair Abdominal Wall, Open Approach (ICD-10-PCS; principal; 2020-12-15 13:00)
DX: K43.6 Other and unspecified ventral hernia with obstruction, without gangrene (principal); G93.41 Metabolic encephalopathy; N17.9 Acute kidney failure, unspecified; E87.1 Hypo-osmolality and hyponatremia; E86.0 Dehydration; F10.10 Alcohol abuse, uncomplicated; Z96.659 Presence of unspecified artificial knee joint; Z87.891 Personal history of nicotine dependence; E86.1 Hypovolemia; Z20.822 Contact with and (suspected) exposure to COVID-19; Z78.1 Physical restraint status
CPT/HCPCS: 0241U; 31720; 36415; 62270; 70450; 71045; 74176; 80048; 80053; 81001; 82140; 82947; 83605; 83735; 84443; 85025; 85610; 87040; 87086; 88302; 93005; 93010; 94002; 94003; 94762; 96365-59; 96366-59; 96368; 97110; 97162; 97165; 97535; 99285-25; A9270; C1751; G0480; J0696; J1650; J2370; J2704; J3010; J3411; J3475; J3480; J7030; J7042; J7050; J7060; J7070; J7120; P9612

== ENCOUNTER 2021-03-01 15:35 | Emergency (ER) | payer OTHER ==
[~2021-03-01] VITALS: Ht 160 cm; Wt 77.1 kg
[~2021-03-01 15:35] MED LIST changes: +ALPR.25 PO; +HYDR1TAB94 PO; +IBUP400 PO; +LOSA25 PO; +MELATONIN5 M1 PO
[2021-03-01 16:11] LABS: BASOPHILS ABSOLUTE AUTO 0.05 K/mm3 (0.00-0.23); BASOPHILS PERCENT AUTO 1 % (0-2); EOSINOPHILS ABSOLUTE AUTO 0.24 K/mm3 (0.00-0.68); EOSINOPHILS PERCENT AUTO 3 % (0-6); Hematocrit 40.6 % (33.0-51.0); Hemoglobin 13.6 g/dL (11.5-16.0); IMMATURE GRAN ABSOLUTE AUTO 0.01 K/mm3 (0.00-0.10); IMMATURE GRAN PERCENT AUTO 0 % (0-1); LYMPHOCYTES ABSOLUTE AUTO 3.25 K/mm3 (0.84-5.20); LYMPHOCYTES PERCENT AUTO 38 % (21-46); MONOCYTES ABSOLUTE AUTO 0.63 K/mm3 (0.16-1.47); MONOCYTES PERCENT AUTO 7 % (4-13); Mean Corpuscular HGB 31.5 pg (26.0-34.0); Mean Corpuscular HGB Conc 33.5 g/dL (31.5-36.5); Mean Corpuscular Volume 94 fL (80-100); Mean Platelet Volume 10.6 fL (9.1-12.4); NEUTROPHILS ABSOLUTE AUTO 4.49 K/mm3 (1.96-9.15); NEUTROPHILS PERCENT AUTO 52 % (41-73); Platelet Count 181 K/mm3 (150-400); RDW Coefficient Variation 14.1 % (11.7-14.2); RDW Standard Deviation 49.2 fL (35.1-46.3); Red Blood Cell Count 4.32 M/mm3 (3.80-5.20); White Blood Cell Count 8.67 K/mm3 (4.00-11.30)
[2021-03-01 16:34] LABS: Alanine Aminotransfer (ALT/SGP 35 U/L (12-78); Albumin, Blood 3.7 g/dL (3.4-5.0); Albumin/Globulin Ratio 0.8 (0.8-1.8); Alk Phos 122 U/L (50-136); Anion Gap 6 mmol/L (6-16); Aspartate Aminotrans (AST/SGOT 56 U/L (12-37); Bilirubin, Total 0.6 mg/dL (0.1-1.0); Blood Urea Nitrogen 16 mg/dL (8-24); Bun/Creatinine Ratio 19.9 (12.0-20.0); CO2, Blood 27 mmol/L (21-32); Calcium, Blood 8.3 mg/dL (8.5-10.1); Chloride, Blood 109 mmol/L (98-108); Creatinine, Blood 0.81 mg/dL (0.40-1.00); Globulin, Blood 4.6 g/dL (2.2-4.0); Glomerular Filtration Rate >60 (60-); Glucose, Blood 136 mg/dL (70-99); Potassium, Blood 3.8 mmol/L (3.5-5.5); Sodium, Blood 142 mmol/L (136-145); Total Protein, Blood 8.3 g/dL (6.4-8.2); Troponin I <0.015 ng/mL (0.000-0.040)
== END 2021-03-01 18:39 | disposition home or self-care (01) ==
LOC: ER 15:35
PROVIDERS: Emergency Medicine
DX: R06.00 Dyspnea, unspecified (principal); Z79.899 Other long term (current) drug therapy
CPT/HCPCS: 36415; 71045; 71260; 80053; 83880; 84484; 85025; 85379; 93005; 93010; 99285-25; Q9967

== ENCOUNTER 2021-04-28 23:58 | Emergency (ER) | payer OTHER ==
[~2021-04-28] VITALS: Ht 157.5 cm; Wt 87.5 kg
[~2021-04-28 23:58] MED LIST changes: +MULTI-VITAMIN1 EAC2 PO
[2021-04-29 02:14] LABS: Anion Gap 8 mmol/L (6-16); Blood Urea Nitrogen 14 mg/dL (8-24); Bun/Creatinine Ratio 14.3 (12.0-20.0); CO2, Blood 26 mmol/L (21-32); Calcium, Blood 8.5 mg/dL (8.5-10.1); Chloride, Blood 105 mmol/L (98-108); Creatinine, Blood 0.98 mg/dL (0.40-1.00); Glomerular Filtration Rate >60 (60-); Glucose, Blood 124 mg/dL (70-99); Potassium, Blood 3.5 mmol/L (3.5-5.5); Sodium, Blood 139 mmol/L (136-145)
== END 2021-04-29 03:31 | disposition home or self-care (01) ==
LOC: ER 23:58
PROVIDERS: Student in an Organized Health Care Education/Training Program
DX: F10.129 Alcohol abuse with intoxication, unspecified (principal); I10 Essential (primary) hypertension; K21.9 Gastro-esophageal reflux disease without esophagitis; Z88.8 Allergy status to other drugs, medicaments and biological substances; Z79.899 Other long term (current) drug therapy; Z87.891 Personal history of nicotine dependence
CPT/HCPCS: 36415; 80048; 93005; 93010; 99284-25; J7030

== ENCOUNTER 2021-08-14 15:47 | Emergency (ER) | payer OTHER ==
[~2021-08-14] VITALS: Ht 160 cm; Wt 79.4 kg
[2021-08-14 16:22] LABS: BASOPHILS ABSOLUTE AUTO 0.05 K/mm3 (0.00-0.23); BASOPHILS PERCENT AUTO 0 % (0-2); EOSINOPHILS ABSOLUTE AUTO 0.22 K/mm3 (0.00-0.68); EOSINOPHILS PERCENT AUTO 2 % (0-6); Hematocrit 39.5 % (33.0-51.0); Hemoglobin 13.3 g/dL (11.5-16.0); IMMATURE GRAN ABSOLUTE AUTO 0.04 K/mm3 (0.00-0.10); IMMATURE GRAN PERCENT AUTO 0 % (0-1); LYMPHOCYTES PERCENT AUTO 25 % (21-46); MONOCYTES ABSOLUTE AUTO 0.97 K/mm3 (0.16-1.47); MONOCYTES PERCENT AUTO 9 % (4-13); Mean Corpuscular HGB 31.9 pg (26.0-34.0); Mean Corpuscular HGB Conc 33.7 g/dL (31.5-36.5); Mean Corpuscular Volume 95 fL (80-100); Mean Platelet Volume 10.6 fL (9.1-12.4); NEUTROPHILS ABSOLUTE AUTO 7.24 K/mm3 (1.96-9.15); NEUTROPHILS PERCENT AUTO 63 % (41-73); Platelet Count 167 K/mm3 (150-400); RDW Standard Deviation 48.3 fL (35.1-46.3); Red Blood Cell Count 4.17 M/mm3 (3.80-5.20); White Blood Cell Count 11.42 K/mm3 (4.00-11.30)
[2021-08-14] MEDS ORDERED: OMEP20ER PO (16:36)
[2021-08-14 16:40] LABS: Alanine Aminotransfer (ALT/SGP 37 U/L (12-78); Albumin, Blood 3.2 g/dL (3.4-5.0); Albumin/Globulin Ratio 0.6 (0.8-1.8); Alk Phos 123 U/L (50-136); Anion Gap 9 mmol/L (6-16); Aspartate Aminotrans (AST/SGOT 59 U/L (12-37); Bilirubin, Total 1.3 mg/dL (0.1-1.0); Blood Urea Nitrogen 13 mg/dL (8-24); CO2, Blood 22 mmol/L (21-32); Calcium, Blood 8.6 mg/dL (8.5-10.1); Chloride, Blood 109 mmol/L (98-108); Creatinine, Blood 0.81 mg/dL (0.40-1.00); Globulin, Blood 5.5 g/dL (2.2-4.0); Glomerular Filtration Rate >60 (60-); Glucose, Blood 94 mg/dL (70-99); Potassium, Blood 3.7 mmol/L (3.5-5.5); Sodium, Blood 140 mmol/L (136-145); Total Protein, Blood 8.7 g/dL (6.4-8.2)
[2021-08-14 17:03] LABS: Source, Urine Clean Catch
[2021-08-14 17:11] LABS: Appearance, Urine Clear (Clear); Bilirubin, Urine Neg (Neg); Blood, Urine Neg (Neg); Color, Urine Yellow (P-Yellow); Glucose Qualitative, Urine Neg (Neg); Ketones, Urine Neg (Neg); Leukocyte Esterase, Urine Neg (Neg); Nitrite, Urine Neg (Neg); Protein, Urine Neg (Neg); Urobilinogen, Urine NORM (Normal)
== END 2021-08-14 17:15 | disposition left against medical advice (07) ==
LOC: ER 15:47
PROVIDERS: Physician Assistant
DX: R10.13 Epigastric pain (principal); I10 Essential (primary) hypertension; D64.9 Anemia, unspecified; K21.9 Gastro-esophageal reflux disease without esophagitis; Z88.8 Allergy status to other drugs, medicaments and biological substances; Z88.2 Allergy status to sulfonamides; Z79.899 Other long term (current) drug therapy; Z87.891 Personal history of nicotine dependence
CPT/HCPCS: 36415; 80053; 81003; 83690; 85025; 99283

== ENCOUNTER 2021-08-24 21:22 | Emergency (ER) | payer OTHER ==
[~2021-08-24] VITALS: Ht 160 cm; Wt 79.4 kg
[2021-08-24] MEDS ORDERED: ALPR.5 PO (23:22)
[2021-08-24] MEDS ORDERED: ASPI81CH PO (23:22)
[2021-08-24] MEDS ORDERED: MELA3 PO (23:22)
[2021-08-24] MEDS ORDERED: Vitamin D1000 UNI1 PO (23:22)
== END 2021-08-24 23:41 | disposition home or self-care (01) ==
LOC: ER 21:22
DX: R63.0 Anorexia (principal); I10 Essential (primary) hypertension; D64.9 Anemia, unspecified; K21.9 Gastro-esophageal reflux disease without esophagitis; Z88.8 Allergy status to other drugs, medicaments and biological substances; Z88.2 Allergy status to sulfonamides; Z79.899 Other long term (current) drug therapy; Z87.891 Personal history of nicotine dependence; Z68.31 Body mass index [BMI] 31.0-31.9, adult
CPT/HCPCS: 99284

== ENCOUNTER 2021-12-16 06:49 | Day surgery (SDC) | payer OTHER ==
[~2021-12-16] VITALS: Ht 160 cm; Wt 78.8 kg
[~2021-12-16 06:49] MED LIST changes: +ALPR.5 PO; +ASPI81CH PO; +BENADRYL25 M1 PO; +CHLO25 PO; +LORA.5 PO; +MELA3 PO; +MELATONIN1010 PO; +ONDA4ODT MM; +SLOW FE PO; +VITAMIN B125000 MC1 PO; +VITAMIN D31000 UNI1 PO; +Vitamin D1000 UNI1 PO
--- NOTE | 2021-12-16 08:20 | NUR ---
Ambulatory in Day Surgery. Surgical site prepped with 2% Chlorhexidine cloth wipe. History, Chart, Medications and Allergies reviewed before start of procedure.. Lungs clear T/O to Auscultation. Patient States Post-Procedure ride home has been arranged.
--- NOTE | 2021-12-16 13:19 | NUR ---
PT ASSISTED TO DRESS. NEVIN DRAIN EMPTIED OF 30ML OF SANGUINOUS FLUIDS. ABD BINDER PLACED. PT C/O PAIN 07/30. PT GIVEN OXYCODONE 5MG PER MD ORDERS.
--- NOTE | 2021-12-16 13:31 | NUR ---
Discharge instructions reviewed with patient. Patient verbalizes understanding. Copy given to patient to take home. PT INCISION INTACT AND NO DRAINAGE. PT REPORTS PAIN DECREASING SOME AFTER BINDER PLACED AND ADDITIONAL PO MEDICATIONS GIVEN. PT TAKING SIPS OF FLUID WIHTOUT ISSUES. ICE PACK PROVIDED. INSTRUCTIONS FOR NEVIN CARE PROVIDED. IV DC'D INTACT. Discharged via wheelchair to private car for ride home.
== END 2021-12-16 13:30 | disposition home or self-care (01) ==
LOC: ORSCMMR 06:49 → ORD 09:00 → ORSCMMR 09:00
PROVIDERS: Surgery
PROC: 0WUF0JZ Supplement Abdominal Wall with Synthetic Substitute, Open Approach (ICD-10-PCS; principal; 2021-12-16 08:30)
DX: K43.2 Incisional hernia without obstruction or gangrene (principal); I10 Essential (primary) hypertension; Z87.891 Personal history of nicotine dependence; Z79.899 Other long term (current) drug therapy
CPT/HCPCS: A9270; C1781; J0690; J1100; J2250; J2370; J2405; J2704; J3010; J7120

== ENCOUNTER 2022-07-20 09:49 | Day surgery (SDC) | payer MEDICARE, OTHER ==
[~2022-07-20] VITALS: Ht 157.5 cm; Wt 77.2 kg
[2022-07-20] MEDS ORDERED: Milk Thistle175 M1 (10:53)
--- NOTE | 2022-07-20 10:58 | NUR ---
07/20/22 [email or web address] Bibi Graham THREE ATTEMPTS AT IV. FIRST ATTEMPT BY JAYDEN IN R FOREARM UNABLE TO ADVANCE. SECOND ATTEMPT BY RN IN L FOREARM INFILTRATED. THRID ATTEMPT BY RN IN R HAND SUCESSFUL.
== END 2022-07-20 12:33 | disposition home or self-care (01) ==
LOC: ORSCSDS 09:49
PROVIDERS: Internal Medicine Gastroenterology
PROC: 0DJ08ZZ Inspection of Upper Intestinal Tract, Via Natural or Artificial Opening Endoscopic (ICD-10-PCS; principal; 2022-07-20 11:15)
DX: I85.00 Esophageal varices without bleeding (principal); I10 Essential (primary) hypertension; K21.9 Gastro-esophageal reflux disease without esophagitis; F41.9 Anxiety disorder, unspecified; J44.9 Chronic obstructive pulmonary disease, unspecified; K74.60 Unspecified cirrhosis of liver; E66.9 Obesity, unspecified; Z68.31 Body mass index [BMI] 31.0-31.9, adult; Z79.899 Other long term (current) drug therapy
CPT/HCPCS: J2704; J7120